=== PATIENT | male | born 1940 | race Two or more races ===

== ENCOUNTER 2022-09-23 12:00 | Emergency (ER) | payer OTHER ==
[2022-09-23 12:15] VITALS: RESP 16; BMI 19.5
[2022-09-23 13:20] LABS: HEMOGLOBIN 11.2 G/dL (11.7-16.9); MCH 31.6 pg (25.7-33.7); MCHC 33.8 g/dl (32.0-35.9); MEAN CELL VOLUME 93.5 fl (80-96); PLATELET COUNT 567.8 10^3/uL (134-434); RBC 3.53 10^6/uL (4.00-5.60); RDW 13.7 % (11.9-15.9); WHITE BLOOD COUNT 6.2 10^3/uL (4.0-10.8)
[2022-09-23 13:39] LABS: ALBUMIN 2.3 g/dl (3.4-5.0); BILIRUBIN,TOTAL 0.3 mg/dl (0.2-1); CALCIUM 8.6 mg/dl (8.5-10); POTASSIUM 4.4 mmol/L (3.5-5.1); TOT PROT 5.1 g/dl (6.4-8.2)
[2022-09-23 15:49] VITALS: BP 141/61; PULSE 65; TEMP 98.2
[2022-09-23 16:30] LABS: N-TERMINAL BNP 2777.6 pg/ml (5-450)
== END 2022-09-23 16:01 | disposition home or self-care (01) ==
LOC: FER 12:00
DX: R22.41 Localized swelling, mass and lump, right lower limb (principal); M79.661 Pain in right lower leg
CPT/HCPCS: 36415; 71275-TC; 80053; 83880; 84484; 85027; 93005; 93971-TC; 99285-25; Q9967

== ENCOUNTER 2022-12-20 11:07 | Emergency (ER) | payer OTHER ==
[2022-12-20 11:21] VITALS: BMI 19.3
[2022-12-20 12:34] LABS: HEMATOCRIT 34.2 % (35.4-49); HEMOGLOBIN 11.6 G/dL (11.7-16.9); MCHC 33.8 g/dl (32.0-35.9); MEAN CELL VOLUME 94.6 fl (80-96); MEAN PLT VOLUME 7.6 fl (7.5-11.1); PLATELET COUNT 193.7 10^3/uL (134-434); RBC 3.62 10^6/uL (4.00-5.60); RDW 14.5 % (11.9-15.9); WHITE BLOOD COUNT 7.2 10^3/uL (4.0-10.8)
[2022-12-20 12:36] LABS: PLATELET ESTIMATE ADEQUATE
[2022-12-20 12:39] LABS: BLOOD UREA NITROGEN 20.7 mg/dl (7-18); CALCIUM 8.6 mg/dl (8.5-10.1); CREATININE 1.1 mg/dl (0.6-1.3); POTASSIUM 3.9 mmol/L (3.5-5.1); SGOT/AST 22.3 U/L (15-37); SGPT/ALT 10.4 U/L (7-52); TOT PROT 6.4 g/dl (6.4-8.2)
[2022-12-20 14:07] VITALS: RESP 14
[2022-12-20 14:40] LABS: BILIRUBIN,TOTAL 0.5 mg/dL (0.2-1)
[2022-12-20 15:03] VITALS: BP 121/78; PULSE 77; TEMP 98
== END 2022-12-20 15:00 | disposition short-term general hospital (02) ==
LOC: FER 11:07
DX: R22.41 Localized swelling, mass and lump, right lower limb (principal); T82.09XA Other mechanical complication of heart valve prosthesis, initial encounter; G89.18 Other acute postprocedural pain; M79.661 Pain in right lower leg; G89.29 Other chronic pain
CPT/HCPCS: 36415; 80053; 85027; 99285-25